=== PATIENT | male | born 1940 | race African-American/Black ===

== ENCOUNTER 2018-11-27 12:48 | Emergency (ER) | payer OTHER, MEDICAID ==
[~2018-11-27] VITALS: Ht 175.3 cm; Wt 59.0 kg
[~2018-11-27 12:48] MED LIST: ALEN70TA68 PO; AMLO10TA80 GT; ATOR20TA65 GT; CLOP75TA33 PO; DOCU-150 GT
[2018-11-27 18:11] LABS: EOSINOPHILS % 1.6 % (0.0-5.0); HEMATOCRIT. 37.5 % (42.0-52.0); HEMOGLOBIN. 11.9 g/dL (14.0-18.0); LYMPHOCYTES % 30.3 % (20.0-50.0); MEAN CORPUSCULAR HEMOGLOBIN 23.4 pg (28.0-32.0); MEAN CORPUSCULAR VOLUME 73.5 fL (80.0-94.0); MEAN PLATELET VOLUME 8.1 fl (7.4-10.4); NEUTROPHILS % 58.1 % (40.0-76.0); PLATELET 252 x1000/uL (130-400); RED BLOOD CELL COUNT 5.11 mill/uL (4.7-6.1); RED CELL DISTRIBUTION WIDTH 15.1 % (11.6-14.6)
[2018-11-27 18:17] LABS: CHLORIDE 106 mEq/L (98-107)
[2018-11-27 20:10] VITALS: BP 106/60
[2018-11-28] MEDS ORDERED: ASPI-1393 MT (17:05)
[2018-11-28] MEDS ORDERED: ATOR40TA70 MT (17:05)
[2018-11-28] MEDS ORDERED: RANI150T7 MT (17:05)
[2018-11-28] MEDS ORDERED: MELA3TAB MT (17:05)
[2018-11-28] MEDS ORDERED: MULT-1044 PO (17:05)
[2018-11-28] MEDS ORDERED: NAPR-681 MT (17:05)
== END 2018-11-27 20:12 | disposition home or self-care (01) ==
LOC: ER 14:11
DX: K94.23 Gastrostomy malfunction (principal); I10 Essential (primary) hypertension; Z86.73 Personal history of transient ischemic attack (TIA), and cerebral infarction without residual deficits; Z79.899 Other long term (current) drug therapy
CPT/HCPCS: 36415; 71045; 93005; 99284

== ENCOUNTER 2018-11-28 13:03 | Inpatient (IN) | payer OTHER, MEDICAID ==
[~2018-11-28] VITALS: Ht 175.3 cm; Wt 57.2 kg
[2018-11-28 14:51] LABS: EOSINOPHILS % 1.2 % (0.0-5.0); HEMATOCRIT. 39.5 % (42.0-52.0); HEMOGLOBIN. 12.7 g/dL (14.0-18.0); LYMPHOCYTES % 32.4 % (20.0-50.0); MEAN CORPUSCULAR HEMOGLOBIN 23.6 pg (28.0-32.0); MEAN CORPUSCULAR VOLUME 73.1 fL (80.0-94.0); MEAN PLATELET VOLUME 7.8 fl (7.4-10.4); MONOCYTES % 9.2 % (2.0-8.0); NEUTROPHILS % 56.2 % (40.0-76.0); PLATELET 258 x1000/uL (130-400); RED CELL DISTRIBUTION WIDTH 15.2 % (11.6-14.6)
[2018-11-28 14:56] LABS: CHLORIDE 105 mEq/L (98-107)
[2018-11-28 14:57] LABS: INR 1.1
[2018-11-28 15:30] VITALS: BP 121/67
[2018-11-28 16:00] VITALS: BP 121/67
[2018-11-28] MEDS ORDERED: ASPI-1393 MT (17:05)
[2018-11-28] MEDS ORDERED: ATOR40TA70 MT (17:05)
[2018-11-28] MEDS ORDERED: NAPR-681 MT (17:05)
[2018-11-28] MEDS ORDERED: RANI150T7 MT (17:05)
[2018-11-28] MEDS ORDERED: MELA3TAB MT (17:05)
[2018-11-28] MEDS ORDERED: MULT-1044 PO (17:05)
[2018-11-28] MEDS ORDERED: HYDROCODONE/ACETAMINOPHEN 5/325MG TABLET PO PRN (18:45)
[2018-11-28] MEDS ORDERED: DIPHENHYDRAMINE 50MG/ML VIAL IV PRN (18:45)
[2018-11-28] MEDS ORDERED: MAGNESIUM/ALUMINUM HYDROXIDE/SIMETHICONE 30ML UDC PO PRN (18:45)
[2018-11-28] MEDS ORDERED: DOCUSATE SODIUM 100MG CAPSULE PO PRN (18:45)
[2018-11-28] MEDS ORDERED: NA PHOS,M-B/NA PHOS,DI-BA ENEMA 118ML PR PRN (18:45)
[2018-11-28] MEDS ORDERED: GUAIFENESIN 200MG/10ML SUGAR FREE UDC PO PRN (18:45)
[2018-11-28] MEDS ORDERED: ACETAMINOPHEN 650MG SUPP PR PRN (18:45)
[2018-11-28] MEDS ORDERED: CLONIDINE 0.1MG TABLET PO PRN (18:45)
[2018-11-28] MEDS ORDERED: ACETAMINOPHEN 325MG TABLET PO PRN (18:45)
[2018-11-28] MEDS ORDERED: LORAZEPAM 0.5MG TABLET PO PRN (18:45)
[2018-11-28] MEDS ORDERED: IPRATROPIUM/ALBUTEROL 0.5-3(2.5)MG/3ML NEB NEB PRN (18:45)
[2018-11-28] MEDS ORDERED: ONDANSETRON HCL 4MG/2ML INJ IV PRN (18:45)
[2018-11-28 20:00] VITALS: BP 119/56
[2018-11-28] MEDS ORDERED: FAMOTIDINE 20MG TABLET PO SCH (21:00)
[2018-11-29] VITALS: BP 109/49
[2018-11-29 04:00] VITALS: BP 95/49
[2018-11-29 07:19] LABS: BASOPHILS % 0.7 % (0.0-2.0); EOSINOPHILS % 1.6 % (0.0-5.0); HEMATOCRIT. 34.5 % (42.0-52.0); HEMOGLOBIN. 11.2 g/dL (14.0-18.0); LYMPHOCYTES % 31.7 % (20.0-50.0); MEAN CORPUSCULAR HEMOGLOBIN 23.7 pg (28.0-32.0); MEAN CORPUSCULAR VOLUME 72.9 fL (80.0-94.0); MEAN PLATELET VOLUME 8.5 fl (7.4-10.4); PLATELET 256 x1000/uL (130-400); RED BLOOD CELL COUNT 4.73 mill/uL (4.7-6.1); RED CELL DISTRIBUTION WIDTH 15.1 % (11.6-14.6)
[2018-11-29 07:30] LABS: CHLORIDE 107 mEq/L (98-107)
[2018-11-29 07:50] LABS: HDL CHOLESTEROL 44 mg/dL (40-59)
[2018-11-29 07:53] LABS: LDL CHOLESTEROL 56 mg/dL (5-100)
[2018-11-29 08:00] VITALS: BP 93/53
[2018-11-29] MEDS ORDERED: ENOXAPARIN 40MG/0.4ML SYR SUBCUT SCH (09:00)
[2018-11-29] MEDS ORDERED: BISACODYL 10MG SUPP PR NR (11:00)
[2018-11-29 12:00] VITALS: BP 95/46
[2018-11-29] MEDS: METOCLOPRAMIDE HCL 10MG/2ML VIAL IV SCH ×2 (12:53→17:33)
[2018-11-29 16:00] VITALS: BP 104/45
== END 2018-11-29 20:05 | disposition home or self-care (01) | DRG 394 ==
LOC: ER 13:27 → 6WST 14:36 → ENRESERV 14:52
PROVIDERS: ADMIT Internal Medicine; ATTEND Internal Medicine
DX: K94.23 Gastrostomy malfunction (principal); G81.91 Hemiplegia, unspecified affecting right dominant side; K56.7 Ileus, unspecified; R47.02 Dysphasia; E78.00 Pure hypercholesterolemia, unspecified; D64.9 Anemia, unspecified; I10 Essential (primary) hypertension; K56.41 Fecal impaction; Z86.73 Personal history of transient ischemic attack (TIA), and cerebral infarction without residual deficits
CPT/HCPCS: 36415; 74018; 80061; 84439; 84443; 99285; J1650; J2765

== ENCOUNTER 2019-04-30 22:36 | Inpatient (IN) | payer OTHER, MEDICAID ==
[~2019-04-30] VITALS: Ht 167.6 cm; Wt 67.1 kg
[~2019-04-30 22:36] MED LIST changes: -AMLO10TA80 GT; +AMLO10TA80 PO; +ASPI-1497 MT; -ATOR20TA65 GT; +ATOR40TA70 PO; -CLOP75TA33 PO; -DOCU-150 GT; +MELA3TAB63 MT; +MULT-1044 PO; +NAPR-681 MT; +RANI150T7 MT
[2019-04-30] MEDS ORDERED: PIPERACILLIN/TAZ 3.375G PREMIX 50 ML IV ONE (23:00)
[2019-04-30] MEDS ORDERED: LORAZEPAM 2MG/ML CPJ IV ONE (23:00)
[2019-04-30] MEDS ORDERED: SODIUM CHLORIDE 0.9% 1000ML BAG (SEPSIS BOLUS) IV ONE (23:00)
[2019-04-30] MEDS ORDERED: VANCOMYCIN 1 G PREMIX 200 ML IV ONE (23:00)
[2019-05-01 00:52] LABS: HEMATOCRIT. 33.7 % (42.0-52.0); HEMOGLOBIN. 10.6 g/dL (14.0-18.0); MEAN CORPUSCULAR HEMOGLOBIN 23.2 pg (28.0-32.0); MEAN CORPUSCULAR VOLUME 73.9 fL (80.0-94.0); MEAN PLATELET VOLUME 7.5 fl (7.4-10.4); PLATELET 440 x1000/uL (130-400); RED BLOOD CELL COUNT 4.56 mill/uL (4.7-6.1); RED CELL DISTRIBUTION WIDTH 14.5 % (11.6-14.6)
[2019-05-01 00:56] LABS: CHLORIDE 109 mEq/L (98-107)
[2019-05-01] MEDS ORDERED: HALOPERIDOL LACTATE 5MG/ML VIAL IM ONE ×3 (01:15→03:30)
[2019-05-01 01:51] LABS: CLARITY URINE CLEAR (CLEAR); COLOR URINE YELLOW (YELLOW); KETONES URINE NEGATIVE (NEGATIVE); LEUKOCYTE ESTERASE URINE NEGATIVE (NEGATIVE); NITRITE URINE NEGATIVE (NEGATIVE); OCCULT BLOOD URINE NEGATIVE (NEGATIVE); PH URINE 8.5 (4.5-8.0); PROTEIN URINE TRACE (NEGATIVE); SPECIFIC GRAVITY URINE 1.025 (1.005-1.030)
[2019-05-01] MEDS ORDERED: SODIUM CHLORIDE 0.9% 1,000 ML IV ONE ×2 (02:49→06:04)
[2019-05-01] MEDS ORDERED: LORAZEPAM 2MG/ML CPJ IV ONE (05:00)
[2019-05-01 09:06] LABS: PLATELET ESTIMATE INCREASED
[2019-05-01] MEDS ORDERED: ONDANSETRON HCL 4MG/2ML INJ IV PRN (11:15)
[2019-05-01] MEDS ORDERED: PIPERACILLIN/TAZ 3.375G PREMIX 50 ML IV SCH (11:34)
[2019-05-01] MEDS ORDERED: VANCOMYCIN 1 G PREMIX 200 ML IV SCH (11:42)
[2019-05-01] MEDS ORDERED: LORAZEPAM 2MG/ML CPJ IV NR (14:30)
[2019-05-01 14:52] VITALS: BP 99/60
[2019-05-01 15:14] VITALS: BP 99/60
[2019-05-01] MEDS: ENOXAPARIN 40MG/0.4ML SYR SUBCUT SCH (15:48)
[2019-05-01] MEDS: IPRATROPIUM/ALBUTEROL 0.5-3(2.5)MG/3ML NEB HHN SCH ×2 (15:59→20:48)
[2019-05-01 16:00] VITALS: BP 94/55
[2019-05-01] MEDS: PIPERACILLIN/TAZOBACTAM 3.375 G in DEXT 5% WATER 100 ML IV SCH (17:16)
[2019-05-01] MEDS: MIDODRINE HCL 5MG TABLET PO SCH (17:16)
[2019-05-01 17:55] VITALS: BP 94/56
[2019-05-01 20:00] VITALS: BP 121/63
[2019-05-01 21:43] LABS: HEMATOCRIT. 32.9 % (42.0-52.0); HEMOGLOBIN. 10.6 g/dL (14.0-18.0); MEAN CORPUSCULAR HEMOGLOBIN 23.6 pg (28.0-32.0); MEAN CORPUSCULAR VOLUME 73.4 fL (80.0-94.0); MEAN PLATELET VOLUME 7.7 fl (7.4-10.4); PLATELET 408 x1000/uL (130-400); RED BLOOD CELL COUNT 4.49 mill/uL (4.7-6.1); RED CELL DISTRIBUTION WIDTH 14.9 % (11.6-14.6)
[2019-05-01] MEDS: ACETAMINOPHEN 325MG TABLET PO PRN (21:45)
[2019-05-01] MEDS: ATORVASTATIN CALCIUM 40MG TABLET PO SCH (21:45)
[2019-05-01 22:00] VITALS: BP 116/53
[2019-05-01 23:23] LABS: PLATELET ESTIMATE SLIGHTLY INCREASED
[2019-05-02] VITALS (12 sets, daily range): BP systolic 89–121; BP diastolic 48–67
[2019-05-02] MEDS: PIPERACILLIN/TAZOBACTAM 3.375 G in DEXT 5% WATER 100 ML IV SCH ×5 (00:45→23:56)
[2019-05-02] MEDS: ACETYLCYSTEINE 100MG/ML 10% VIAL 4ML INH SCH ×3 (01:06→16:55)
[2019-05-02] MEDS: IPRATROPIUM/ALBUTEROL 0.5-3(2.5)MG/3ML NEB HHN SCH ×6 (01:10→20:59)
[2019-05-02] MEDS: VANCOMYCIN 750 MG PREMIX 150 ML IV SCH ×2 (02:28→14:11)
[2019-05-02 07:20] LABS: CHLORIDE 111 mEq/L (98-107)
[2019-05-02 07:21] LABS: HEMATOCRIT. 30.1 % (42.0-52.0); HEMOGLOBIN. 9.7 g/dL (14.0-18.0); MEAN CORPUSCULAR HEMOGLOBIN 23.2 pg (28.0-32.0); MEAN CORPUSCULAR VOLUME 71.9 fL (80.0-94.0); MEAN PLATELET VOLUME 7.8 fl (7.4-10.4); PLATELET 418 x1000/uL (130-400); RED BLOOD CELL COUNT 4.18 mill/uL (4.7-6.1); RED CELL DISTRIBUTION WIDTH 14.5 % (11.6-14.6)
[2019-05-02 08:29] LABS: BG CARBOXYHEMOGLOBIN 0.3 % (0.5-1.5); BG DEOXYHEMOGLOBIN 13.1 % (0.0-5.0); BG HCO3 ACT 23.9 mmol/L (22.0-26.0); BG METHEMOGLOBIN 0.3 % (0.0-1.5); BG OXYGEN SATURATION 86.8 % (92.0-98.5); BG OXYHEMOGLOBIN 86.3 % (94.0-97.0); BG PCO2 32.2 mmHg (35.0-45.0); BG PH 7.489 (7.350-7.450); BG PO2 46.4 mmHg (75.0-100.0); BG SAMPLE SITE LEFT RADIAL; BG TOTAL HEMOGLOBIN 10.3 g/dL (12.0-18.0); BG VENT MODE ROOM AIR
[2019-05-02] MEDS: MIDODRINE HCL 5MG TABLET PO SCH ×3 (09:10→16:32)
[2019-05-02] MEDS ORDERED: DIPHENHYDRAMINE 50MG/ML VIAL IV SCH (10:30)
[2019-05-02] MEDS: ENOXAPARIN 40MG/0.4ML SYR SUBCUT SCH (14:12)
[2019-05-02] MEDS: ACETAMINOPHEN 325MG TABLET PO PRN ×2 (16:32→23:56)
[2019-05-02 18:42] LABS: PLATELET ESTIMATE INCREASED
[2019-05-02] MEDS: ATORVASTATIN CALCIUM 40MG TABLET PO SCH (20:28)
[2019-05-03] VITALS (16 sets, daily range): BP systolic 97–139; BP diastolic 52–104
[2019-05-03] MEDS: IPRATROPIUM/ALBUTEROL 0.5-3(2.5)MG/3ML NEB HHN SCH ×6 (00:45→22:06)
[2019-05-03] MEDS: ACETYLCYSTEINE 100MG/ML 10% VIAL 4ML INH SCH ×3 (00:45→16:12)
[2019-05-03] MEDS: VANCOMYCIN 750 MG PREMIX 150 ML IV SCH (02:46)
[2019-05-03] MEDS: PIPERACILLIN/TAZOBACTAM 3.375 G in DEXT 5% WATER 100 ML IV SCH ×4 (05:33→23:59)
[2019-05-03 06:09] LABS: BASOPHILS % 0.4 % (0.0-2.0); EOSINOPHILS % 1.1 % (0.0-5.0); HEMATOCRIT. 29.3 % (42.0-52.0); HEMOGLOBIN. 9.5 g/dL (14.0-18.0); LYMPHOCYTES % 8.7 % (20.0-50.0); MEAN CORPUSCULAR HEMOGLOBIN 23.3 pg (28.0-32.0); MEAN CORPUSCULAR VOLUME 71.7 fL (80.0-94.0); MEAN PLATELET VOLUME 7.8 fl (7.4-10.4); MONOCYTES % 7.2 % (2.0-8.0); NEUTROPHILS % 82.6 % (40.0-76.0); PLATELET 379 x1000/uL (130-400); RED BLOOD CELL COUNT 4.08 mill/uL (4.7-6.1); RED CELL DISTRIBUTION WIDTH 14.3 % (11.6-14.6)
[2019-05-03 07:35] LABS: CHLORIDE 108 mEq/L (98-107)
[2019-05-03 08:40] LABS: PARTIAL THROMBOPLASTIN TIME 37.4 sec (23.4-31.0)
[2019-05-03] MEDS: MIDODRINE HCL 5MG TABLET PO SCH ×3 (09:20→18:27)
[2019-05-03] MEDS ORDERED: DIATR MEGLU/DIATRIZOATE SOLN 30ML ONE (14:01)
[2019-05-03] MEDS: VANCOMYCIN 1 G PREMIX 200 ML IV SCH (16:45)
[2019-05-03] MEDS ORDERED: POTASSIUM CHLORIDE 20MEQ/PACKET PO NR (20:00)
[2019-05-03] MEDS: ACETAMINOPHEN 325MG TABLET PO PRN (20:54)
[2019-05-03] MEDS: ATORVASTATIN CALCIUM 40MG TABLET PO SCH (20:54)
[2019-05-04] VITALS (12 sets, daily range): BP systolic 102–133; BP diastolic 45–65
[2019-05-04] MEDS: ACETYLCYSTEINE 100MG/ML 10% VIAL 4ML INH SCH ×3 (01:07→15:55)
[2019-05-04] MEDS: IPRATROPIUM/ALBUTEROL 0.5-3(2.5)MG/3ML NEB HHN SCH ×6 (01:07→21:59)
[2019-05-04] MEDS: VANCOMYCIN 1 G PREMIX 200 ML IV SCH ×2 (04:25→15:48)
[2019-05-04] MEDS: PIPERACILLIN/TAZOBACTAM 3.375 G in DEXT 5% WATER 100 ML IV SCH ×3 (05:54→16:37)
[2019-05-04 06:54] LABS: BASOPHILS % 0.3 % (0.0-2.0); EOSINOPHILS % 1.9 % (0.0-5.0); HEMATOCRIT. 29.3 % (42.0-52.0); HEMOGLOBIN. 9.7 g/dL (14.0-18.0); MEAN CORPUSCULAR HEMOGLOBIN 23.6 pg (28.0-32.0); MEAN CORPUSCULAR VOLUME 70.9 fL (80.0-94.0); MEAN PLATELET VOLUME 7.8 fl (7.4-10.4); MONOCYTES % 9.3 % (2.0-8.0); NEUTROPHILS % 79.5 % (40.0-76.0); PLATELET 380 x1000/uL (130-400); RED BLOOD CELL COUNT 4.13 mill/uL (4.7-6.1); RED CELL DISTRIBUTION WIDTH 14.6 % (11.6-14.6)
[2019-05-04 07:01] LABS: CHLORIDE 106 mEq/L (98-107)
[2019-05-04] MEDS: MIDODRINE HCL 5MG TABLET PO SCH ×3 (09:21→16:37)
[2019-05-04] MEDS ORDERED: GUAIFENESIN 200MG/10ML SUGAR FREE UDC PO PRN (14:30)
[2019-05-04] MEDS ORDERED: LORAZEPAM 2MG/ML CPJ IV PRN (14:30)
[2019-05-04] MEDS: MORPHINE SULFATE 2 MG/ML CPJ (NOT FOR IM USE) IV PRN (17:16)
[2019-05-04] MEDS ORDERED: VANCOMYCIN 1 G PREMIX 200 ML IV SCH (20:00)
[2019-05-04] MEDS ORDERED: LACTULOSE 20G/30ML UDC PO PRN (21:00)
[2019-05-04] MEDS: ATORVASTATIN CALCIUM 40MG TABLET PO SCH (21:12)
[2019-05-05] VITALS (13 sets, daily range): BP systolic 96–135; BP diastolic 52–82
[2019-05-05] MEDS: ACETYLCYSTEINE 100MG/ML 10% VIAL 4ML INH SCH ×2 (00:49→07:43)
[2019-05-05] MEDS: IPRATROPIUM/ALBUTEROL 0.5-3(2.5)MG/3ML NEB HHN SCH ×5 (00:49→20:32)
[2019-05-05] MEDS: PIPERACILLIN/TAZOBACTAM 3.375 G in DEXT 5% WATER 100 ML IV SCH ×5 (00:55→23:30)
[2019-05-05 06:25] LABS: CHLORIDE 107 mEq/L (98-107)
[2019-05-05 06:31] LABS: VANCOMYCIN TROUGH 18.1 ug/mL (5.0-10.0)
[2019-05-05 06:58] LABS: HEMATOCRIT 28.9 % (42.0-52.0); HEMOGLOBIN 9.3 g/dL (14.0-18.0); MEAN CORPUSCULAR HEMOGLOBIN 23.2 pg (28.0-32.0); MEAN CORPUSCULAR VOLUME 72.3 fL (80.0-94.0); PLATELET 400 x1000/uL (130-400); RED CELL DISTRIBUTION WIDTH 14.5 % (11.6-14.6)
[2019-05-05] MEDS ORDERED: VANCOMYCIN 1 G PREMIX 200 ML IV SCH (08:00)
[2019-05-05] MEDS: MIDODRINE HCL 5MG TABLET PO SCH (09:00)
[2019-05-05] MEDS ORDERED: SODIUM BICARBONATE 4% (2.4MEQ) 5ML VIAL IV ONE (12:05)
[2019-05-05] MEDS ORDERED: LIDOCAINE HCL 1% 20ML VIAL (Pyxis) INJ ONE (12:05)
[2019-05-05] MEDS ORDERED: NEOSTIGMINE METHYLSULFATE 1MG/ML 10 ML VIAL ONE (12:35)
[2019-05-05] MEDS ORDERED: LIDOCAINE HCL/PF 1% 10 MG/ML 5ML VIAL ONE (12:35)
[2019-05-05] MEDS ORDERED: PROPOFOL 200MG/20ML VIAL IV ONE (12:35)
[2019-05-05] MEDS ORDERED: CEFAZOLIN SODIUM 1000MG/VIAL ONE (12:35)
[2019-05-05] MEDS ORDERED: ROCURONIUM BROMIDE 10MG/ML VIAL 5ML IV ONE (12:35)
[2019-05-05] MEDS ORDERED: SODIUM CHLORIDE 0.9% 10ML VIAL ONE (12:35)
[2019-05-05] MEDS ORDERED: FENTANYL CITRATE/PF 50MCG/ML 2ML VIAL ONE (12:35)
[2019-05-05] MEDS ORDERED: MIDAZOLAM HCL 2 MG/2 ML VIAL ONE ×2 (12:35→12:38)
[2019-05-05] MEDS ORDERED: GLYCOPYRROLATE 0.2 MG/ML 2ML VIAL ONE (12:35)
[2019-05-05] MEDS ORDERED: METOCLOPRAMIDE HCL 10MG/2ML VIAL ONE (12:36)
[2019-05-05] MEDS ORDERED: SUCCINYLCHOLINE CHLORIDE 200MG/10ML IV ONE (12:36)
[2019-05-05] MEDS ORDERED: ONDANSETRON HCL 4MG/2ML INJ ONE (12:36)
[2019-05-05] MEDS ORDERED: ONDANSETRON HCL 4MG/2ML INJ IV PRN (13:30)
[2019-05-05] MEDS ORDERED: SODIUM CHLORIDE 0.9% 1,000 ML IV ONE (13:30)
[2019-05-05 17:31] LABS: BG BASE EXCESS 2.8 mmol/L (-2.0-2.0); BG CARBOXYHEMOGLOBIN 0.3 % (0.5-1.5); BG DEOXYHEMOGLOBIN 10.1 % (0.0-5.0); BG FRACTION INSPIRED OXYGEN 21; BG HCO3 ACT 26.3 mmol/L (22.0-26.0); BG METHEMOGLOBIN 0.2 % (0.0-1.5); BG OXYGEN SATURATION 89.8 % (92.0-98.5); BG OXYHEMOGLOBIN 89.4 % (94.0-97.0); BG PH 7.481 (7.350-7.450); BG PO2 53.7 mmHg (75.0-100.0); BG SAMPLE SITE LEFT RADIAL; BG TOTAL HEMOGLOBIN 10.6 g/dL (12.0-18.0); BG VENT MODE ROOM AIR
[2019-05-05] MEDS: METHYLPREDNISOLONE SOD SUCC 40 MG/ML VIAL IV SCH (18:46)
[2019-05-05] MEDS: VANCOMYCIN 750 MG PREMIX 150 ML IV SCH (18:47)
[2019-05-05] MEDS: ATORVASTATIN CALCIUM 40MG TABLET PO SCH (21:03)
[2019-05-05] MEDS: MORPHINE SULFATE 2 MG/ML CPJ (NOT FOR IM USE) IV PRN (21:09)
[2019-05-06] VITALS (14 sets, daily range): BP systolic 111–133; BP diastolic 63–82
[2019-05-06] MEDS: IPRATROPIUM/ALBUTEROL 0.5-3(2.5)MG/3ML NEB HHN SCH ×6 (01:47→20:01)
[2019-05-06] MEDS: ACETYLCYSTEINE 100MG/ML 10% VIAL 4ML INH SCH ×2 (01:48→08:37)
[2019-05-06] MEDS: METHYLPREDNISOLONE SOD SUCC 40 MG/ML VIAL IV SCH ×2 (05:51→18:32)
[2019-05-06] MEDS: VANCOMYCIN 750 MG PREMIX 150 ML IV SCH ×2 (05:51→18:32)
[2019-05-06] MEDS: PIPERACILLIN/TAZOBACTAM 3.375 G in DEXT 5% WATER 100 ML IV SCH ×3 (05:51→18:32)
[2019-05-06 06:08] LABS: HEMATOCRIT. 31.4 % (42.0-52.0); HEMOGLOBIN. 10.1 g/dL (14.0-18.0); MEAN CORPUSCULAR HEMOGLOBIN 22.8 pg (28.0-32.0); MEAN CORPUSCULAR VOLUME 71.2 fL (80.0-94.0); MEAN PLATELET VOLUME 8.2 fl (7.4-10.4); PLATELET 386 x1000/uL (130-400); RED CELL DISTRIBUTION WIDTH 14.4 % (11.6-14.6)
[2019-05-06 06:35] LABS: CHLORIDE 107 mEq/L (98-107)
[2019-05-06 12:48] LABS: PLATELET ESTIMATE NORMAL
[2019-05-06] MEDS ORDERED: P20 PO (14:14)
[2019-05-06] MEDS ORDERED: LEVO500T2 PO (14:14)
[2019-05-06] MEDS ORDERED: IPRA3AMP9 NEB (14:14)
== END 2019-05-06 21:25 | disposition hospice, home (50) | DRG 871 ==
LOC: ER 22:36 → EDBEDREQ 05-01 06:08 → EDBEDREQTM 05-01 06:08 → EDBEDREQ 05-01 06:26 → EDBEDREQSVC 05-01 06:30 → ENRESERV 05-01 13:54 → 5EST 05-01 14:27
PROVIDERS: ADMIT Internal Medicine; ATTEND Internal Medicine
PROC: 0W9930Z Drainage of Right Pleural Cavity with Drainage Device, Percutaneous Approach (ICD-10-PCS; principal; 2019-05-05)
DX: A41.9 Sepsis, unspecified organism (principal); G93.41 Metabolic encephalopathy; J96.00 Acute respiratory failure, unspecified whether with hypoxia or hypercapnia; E43 Unspecified severe protein-calorie malnutrition; J18.9 Pneumonia, unspecified organism; R65.21 Severe sepsis with septic shock; J86.9 Pyothorax without fistula; E87.2 Acidosis; J91.8 Pleural effusion in other conditions classified elsewhere; I69.351 Hemiplegia and hemiparesis following cerebral infarction affecting right dominant side; E87.8 Other disorders of electrolyte and fluid balance, not elsewhere classified; D64.9 Anemia, unspecified; E78.00 Pure hypercholesterolemia, unspecified; I10 Essential (primary) hypertension; G93.89 Other specified disorders of brain; E78.5 Hyperlipidemia, unspecified; E87.6 Hypokalemia; Z51.5 Encounter for palliative care; Z79.899 Other long term (current) drug therapy; Z79.82 Long term (current) use of aspirin; Z68.23 Body mass index [BMI] 23.0-23.9, adult; I69.320 Aphasia following cerebral infarction; Z74.01 Bed confinement status
CPT/HCPCS: 32555; 36415; 36600; 70551; 71045; 71250; 80048; 80053; 80202; 81003; 82040; 82270; 82375; 82805; 82962; 83036; 83605; 83615; 84145; 84478; 84484; 85025; 85027; 87102; 87116; 92610; 93005; 94640; 96365; 99291; C1729; J0330; J0690; J1200; J1630; J1650; J2060; J2250; J2270; J2405; J2543; J2704; J2710; J2765; J2920; J3010; J3370; J3490; J7030; J7060; J7608; Q9963

== ENCOUNTER 2023-10-30 15:03 | Inpatient (IN) | payer OTHER, MEDICAID, MEDICARE ==
[~2023-10-30] VITALS: Ht 175.3 cm; Wt 71.8 kg
[~2023-10-30 15:03] MED LIST changes: -ALEN70TA68 PO; -ASPI-1497 MT; +IPRA3AMP9 NEB; +LEVO500T2 PO; +MELA3TAB40 MT; -MELA3TAB63 MT; -MULT-1044 PO; -NAPR-681 MT; +P20 PO; -RANI150T7 MT
[2023-10-30] MEDS: PIPERACILLIN/TAZO 3.375G/50ML 50 ML IV ONE (15:46)
[2023-10-30] MEDS: SODIUM CHLORIDE 0.9% 1000ML BAG (SEPSIS BOLUS) IV ONE (15:47)
[2023-10-30 16:28] LABS: BASOPHILS % 0.3 % (0.0-2.0); DIFFERENTIAL COMMENT 0; EOSINOPHILS % 0.1 % (0.0-5.0); HEMATOCRIT. 47.4 % (42.0-52.0); HEMOGLOBIN. 14.9 g/dL (14.0-18.0); LYMPHOCYTES % 10.4 % (20.0-50.0); MEAN CORPUSCULAR HGB CONC 31.6 g/dL (31.0-37.0); MEAN PLATELET VOLUME 8.8 fl (7.4-10.4); MONOCYTES % 7.4 % (2.0-8.0); NEUTROPHILS % 81.8 % (40.0-76.0); PLATELET 200 x1000/uL (130-400); RED BLOOD CELL COUNT 6.23 mill/uL (4.7-6.1); WHITE BLOOD COUNT 5.3 x1000/uL (4.5-11.0)
[2023-10-30 16:34] LABS: CARBON DIOXIDE 22 mEq/L (21-32); CHLORIDE 104 mEq/L (98-107); SODIUM 138 mEq/L (136-145)
[2023-10-30 16:35] LABS: CALCIUM 9.3 mg/dL (8.7-10.4)
[2023-10-30 16:36] LABS: INR 1.1; PROTHROMBIN TIME 11.9 sec (9.6-11.0)
[2023-10-30 16:40] LABS: CREATININE 3.3 mg/dL (0.6-1.3); GLUCOSE 148 mg/dL (70-105); TROPONIN I HIGH SENSITIVITY 27 ng/L (3.0-53); UREA NITROGEN BLOOD 26 mg/dL (9-23)
[2023-10-30 16:41] LABS: ALANINE AMINOTRANSFERASE 13 IU/L (10-49)
[2023-10-30 16:42] LABS: ALBUMIN 3.6 g/dL (3.2-4.8); ASPARTATE AMINOTRANSFERASE 30 IU/L (<34); BILIRUBIN DIRECT 0.3 mg/dL (<=3.0); BILIRUBIN TOTAL 0.9 mg/dL (0.1-1.0); PROTEIN TOTAL 6.5 g/dL (6.0-8.3)
[2023-10-30 16:47] LABS: LACTIC ACID 6.1 mmol/L (0.4-2.0)
[2023-10-30] MEDS: VANCOMYCIN 1G PREMIX 200 ML IV ONE (17:08)
[2023-10-30 19:35] LABS: CLARITY URINE TURBID (CLEAR); COLOR URINE DARK YELLOW (YELLOW); GLUCOSE URINE NEGATIVE (NEGATIVE); KETONES URINE NEGATIVE (NEGATIVE); LEUKOCYTE ESTERASE URINE 3+ (NEGATIVE); NITRITE URINE NEGATIVE (NEGATIVE); OCCULT BLOOD URINE 3+ (NEGATIVE); PROTEIN URINE 2+ (NEGATIVE); SPECIFIC GRAVITY URINE 1.011 (1.005-1.030); UROBILINOGEN URINE 0.2 E.U./dL (0.2-1.0)
[2023-10-30 20:19] LABS: TROPONIN I HIGH SENSITIVITY 31 ng/L (3.0-53)
[2023-10-30 20:32] LABS: WBC URINE TNTC /hpf (0-2)
[2023-10-30 20:33] LABS: RBC URINE 25-50 /hpf (0-2)
[2023-10-30 20:34] LABS: BACTERIA URINE 4+; SQUAMOUS EPITHELIAL CELL URINE RARE /lpf (RARE/1+)
[2023-10-31] VITALS (13 sets, daily range): BP systolic 104–121; BP diastolic 56–81; PULSE 115–129; RESP 0–31; TEMP 36.50292–38.22528; O2SAT 93–100
[2023-10-31] MEDS ORDERED: CEFEPIME 1GM IN DEXT 5% 50ML IV SCH (01:15)
[2023-10-31 01:47] LABS: BG BASE EXCESS -3.9 mmol/L (-2.0-2.0); BG CARBOXYHEMOGLOBIN 0.1 % (0.5-1.5); BG DEOXYHEMOGLOBIN 0.4 % (0.0-5.0); BG FRACTION INSPIRED OXYGEN 100; BG METHEMOGLOBIN 0.1 % (0.0-1.5); BG OXYGEN SATURATION 99.6 % (92.0-98.5); BG OXYHEMOGLOBIN 99.4 % (94.0-97.0); BG PCO2 29.3 mmHg (35.0-45.0); BG PH 7.429 (7.350-7.450); BG PO2 178.8 mmHg (75.0-100.0); BG SAMPLE SITE LEFT RADIAL; BG TOTAL HEMOGLOBIN 15.1 g/dL (12.0-18.0); BG VENT MODE MASK - NRB
[2023-10-31] MEDS: METHYLPREDNISOLONE SOD SUCC 40MG/ML (ACT-O-VIAL) IV SCH (01:47)
[2023-10-31] MEDS: DEXT 5%/0.45% NACL 1000ML 1,000 ML IV SCH (02:04)
[2023-10-31] MEDS ORDERED: FURO20TA4 PO (02:29)
[2023-10-31] MEDS ORDERED: BACL-141 PO (02:29)
[2023-10-31] MEDS ORDERED: AMLO5TAB88 PO (02:29)
[2023-10-31] MEDS ORDERED: ALPR-340 PO (02:31)
[2023-10-31] MEDS ORDERED: PRED10TA PO (02:31)
[2023-10-31] MEDS: CEFEPIME 1GM/50ML 50 ML IV SCH (05:04)
[2023-10-31] MEDS: DOXYCYCLINE 100MG/100ML 100 ML IV SCH (05:36)
[2023-10-31] MEDS ORDERED: ACETAMINOPHEN 650MG SUPP PR PRN (07:15)
[2023-10-31] MEDS ORDERED: LIDOCAINE HCL 1% 10 MG/ML 10ML VIAL ONE (07:58)
[2023-10-31] MEDS ORDERED: ACETAMINOPHEN 650MG SUPP PR SCH (08:00)
[2023-10-31] MEDS: IPRATROPIUM/ALBUTEROL 0.5-3(2.5)MG/3ML NEB HHN SCH (09:07)
[2023-10-31] MEDS: PANTOPRAZOLE SODIUM 40 MG/VIAL IV SCH (09:16)
[2023-10-31] MEDS: ENOXAPARIN 30MG/0.3ML SYR SUBCUT SCH (09:16)
[2023-10-31] MEDS: MEROPENEM 500MG/50ML 50 ML IV SCH (09:32)
[2023-10-31 13:34] LABS: POTASSIUM 4.4 mEq/L (3.5-5.1)
[2023-10-31 13:36] LABS: CALCIUM 8.1 mg/dL (8.7-10.4)
[2023-10-31 13:40] LABS: CREATININE 2.5 mg/dL (0.6-1.3)
[2023-10-31 15:08] LABS: BG BASE EXCESS -2.4 mmol/L (-2.0-2.0); BG CARBOXYHEMOGLOBIN 0.4 % (0.5-1.5); BG DEOXYHEMOGLOBIN 4.1 % (0.0-5.0); BG FRACTION INSPIRED OXYGEN 32; BG OXYGEN SATURATION 95.9 % (92.0-98.5); BG OXYHEMOGLOBIN 95.5 % (94.0-97.0); BG PCO2 32.4 mmHg (35.0-45.0); BG SAMPLE SITE LEFT RADIAL; BG TOTAL HEMOGLOBIN 13.7 g/dL (12.0-18.0)
[2023-10-31 15:23] LABS: HEMATOCRIT. 36.8 % (42.0-52.0); HEMOGLOBIN. 11.8 g/dL (14.0-18.0); MEAN CORPUSCULAR HGB CONC 32.1 g/dL (31.0-37.0); MEAN CORPUSCULAR VOLUME 74.9 fL (80.0-94.0); MEAN PLATELET VOLUME 9.9 fl (7.4-10.4); PLATELET 79 x1000/uL (130-400); RED BLOOD CELL COUNT 4.91 mill/uL (4.7-6.1); RED CELL DISTRIBUTION WIDTH 15.9 % (11.6-14.6); WHITE BLOOD COUNT 8.8 x1000/uL (4.5-11.0)
[2023-10-31 15:24] LABS: DIFFERENTIAL COMMENT 1
[2023-10-31 15:37] LABS: AMMONIA < 17 uMol/L (<32)
[2023-10-31 16:32] LABS: ANISOCYTOSIS 1+; PLATELET ESTIMATE DECREASED
[2023-10-31 16:33] LABS: HYPOCHROMASIA 1+; MICROCYTOSIS 2+
[2023-11-01] VITALS (18 sets, daily range): BP systolic 94–127; BP diastolic 58–80; PULSE 70–112; RESP 0–22; TEMP 36.28068–37.11408; O2SAT 78–98
[2023-11-01 06:10] LABS: HEMOGLOBIN. 12.6 g/dL (14.0-18.0); MEAN CORPUSCULAR HEMOGLOBIN 23.5 pg (28.0-32.0); MEAN CORPUSCULAR HGB CONC 31.6 g/dL (31.0-37.0); MEAN CORPUSCULAR VOLUME 74.5 fL (80.0-94.0); MEAN PLATELET VOLUME 9.6 fl (7.4-10.4); PLATELET 61 x1000/uL (130-400); RED BLOOD CELL COUNT 5.37 mill/uL (4.7-6.1); RED CELL DISTRIBUTION WIDTH 16.1 % (11.6-14.6); WHITE BLOOD COUNT 9.6 x1000/uL (4.5-11.0)
[2023-11-01 06:11] LABS: CHLORIDE 108 mEq/L (98-107); SODIUM 139 mEq/L (136-145)
[2023-11-01 06:12] LABS: CARBON DIOXIDE 23 mEq/L (21-32)
[2023-11-01 06:13] LABS: CALCIUM 8.7 mg/dL (8.7-10.4)
[2023-11-01 06:17] LABS: CREATININE 1.8 mg/dL (0.6-1.3); GLUCOSE 207 mg/dL (70-105)
[2023-11-01 06:18] LABS: UREA NITROGEN BLOOD 40 mg/dL (9-23)
[2023-11-01 06:19] LABS: ALANINE AMINOTRANSFERASE 16 IU/L (10-49); ALBUMIN 2.9 g/dL (3.2-4.8); ASPARTATE AMINOTRANSFERASE 23 IU/L (<34); BILIRUBIN DIRECT 0.3 mg/dL (<=3.0)
[2023-11-01 06:20] LABS: BILIRUBIN TOTAL 0.6 mg/dL (0.1-1.0); PHOSPHORUS 2.5 mg/dL (2.5-4.9); PROTEIN TOTAL 5.2 g/dL (6.0-8.3)
[2023-11-01 06:39] LABS: DIFFERENTIAL COMMENT 1
[2023-11-01 14:20] LABS: NUCLEATED RED BLOOD CELLS 1 /100 WBC
[2023-11-01 14:21] LABS: ANISOCYTOSIS 1+; MICROCYTOSIS 2+; PLATELET ESTIMATE DECREASED
[2023-11-01] MEDS: CEFTRIAXONE 2GM/50ML 50ML IV SCH (20:23)
[2023-11-01] MEDS ORDERED: MEROPENEM 1G/100ML IV SCH (21:00)
[2023-11-02] VITALS (18 sets, daily range): BP systolic 117–140; BP diastolic 61–82; PULSE 74–106; RESP 0–21; TEMP 36.16956–37.00296; O2SAT 96–100
[2023-11-02 08:06] LABS: HEMATOCRIT. 39.7 % (42.0-52.0); HEMOGLOBIN. 12.3 g/dL (14.0-18.0); MEAN CORPUSCULAR HEMOGLOBIN 23.3 pg (28.0-32.0); MEAN CORPUSCULAR HGB CONC 30.8 g/dL (31.0-37.0); MEAN CORPUSCULAR VOLUME 75.6 fL (80.0-94.0); MEAN PLATELET VOLUME 10.6 fl (7.4-10.4); PLATELET 53 x1000/uL (130-400); RED BLOOD CELL COUNT 5.26 mill/uL (4.7-6.1); RED CELL DISTRIBUTION WIDTH 16.1 % (11.6-14.6); WHITE BLOOD COUNT 12.1 x1000/uL (4.5-11.0)
[2023-11-02 08:12] LABS: CHLORIDE 110 mEq/L (98-107); SODIUM 140 mEq/L (136-145)
[2023-11-02 08:13] LABS: CALCIUM 8.5 mg/dL (8.7-10.4); CARBON DIOXIDE 21 mEq/L (21-32)
[2023-11-02 08:17] LABS: UREA NITROGEN BLOOD 27 mg/dL (9-23)
[2023-11-02 08:18] LABS: GLUCOSE 172 mg/dL (70-105)
[2023-11-02 08:20] LABS: ALANINE AMINOTRANSFERASE 27 IU/L (10-49); ALBUMIN 2.8 g/dL (3.2-4.8); ASPARTATE AMINOTRANSFERASE 35 IU/L (<34); BILIRUBIN DIRECT 0.1 mg/dL (<=3.0); BILIRUBIN TOTAL 0.4 mg/dL (0.1-1.0); DIFFERENTIAL COMMENT 1; PHOSPHORUS 1.7 mg/dL (2.5-4.9)
[2023-11-02 08:22] LABS: LACTIC ACID 2.8 mmol/L (0.4-2.0)
[2023-11-02 16:38] LABS: ANISOCYTOSIS 1+; HYPOCHROMASIA 1+; MICROCYTOSIS 1+; PLATELET ESTIMATE MARKEDLY DECREASED
[2023-11-03] VITALS (20 sets, daily range): BP systolic 117–136; BP diastolic 56–110; PULSE 78–100; RESP 0–24; TEMP 36.33624–37.39188; O2SAT 78–100
[2023-11-03 05:45] LABS: HEMATOCRIT. 39.1 % (42.0-52.0); MEAN CORPUSCULAR HEMOGLOBIN 23.4 pg (28.0-32.0); MEAN CORPUSCULAR HGB CONC 30.7 g/dL (31.0-37.0); MEAN CORPUSCULAR VOLUME 76.5 fL (80.0-94.0); MEAN PLATELET VOLUME 10.5 fl (7.4-10.4); PLATELET 54 x1000/uL (130-400); RED BLOOD CELL COUNT 5.12 mill/uL (4.7-6.1); RED CELL DISTRIBUTION WIDTH 16.4 % (11.6-14.6)
[2023-11-03 06:27] LABS: CARBON DIOXIDE 21 mEq/L (21-32); CHLORIDE 111 mEq/L (98-107); SODIUM 139 mEq/L (136-145)
[2023-11-03 06:28] LABS: CALCIUM 8.6 mg/dL (8.7-10.4)
[2023-11-03 06:31] LABS: CREATININE 0.7 mg/dL (0.6-1.3)
[2023-11-03 06:32] LABS: GLUCOSE 116 mg/dL (70-105)
[2023-11-03 06:33] LABS: UREA NITROGEN BLOOD 21 mg/dL (9-23)
[2023-11-03 06:35] LABS: PHOSPHORUS 1.6 mg/dL (2.5-4.9)
[2023-11-03 06:38] LABS: POTASSIUM 5.8 mEq/L (3.5-5.1)
[2023-11-03 06:54] LABS: DIFFERENTIAL COMMENT 1
[2023-11-03] MEDS: SODIUM PHOSPHATE 30 MMOL in DEXT 5% WATER 490 ML IV ONE (12:42)
[2023-11-03 14:22] LABS: ANISOCYTOSIS 1+; PLATELET ESTIMATE MARKEDLY DECREASED
[2023-11-04] VITALS (17 sets, daily range): BP systolic 112–128; BP diastolic 55–88; PULSE 71–100; RESP 10–23; TEMP 36.28068–37.00296; O2SAT 90–100
[2023-11-04 06:10] LABS: HEMATOCRIT. 35.3 % (42.0-52.0); MEAN CORPUSCULAR HEMOGLOBIN 23.1 pg (28.0-32.0); MEAN CORPUSCULAR HGB CONC 31.1 g/dL (31.0-37.0); MEAN CORPUSCULAR VOLUME 74.4 fL (80.0-94.0); MEAN PLATELET VOLUME 10.1 fl (7.4-10.4); PLATELET 75 x1000/uL (130-400); RED BLOOD CELL COUNT 4.75 mill/uL (4.7-6.1); RED CELL DISTRIBUTION WIDTH 15.6 % (11.6-14.6); WHITE BLOOD COUNT 12.1 x1000/uL (4.5-11.0)
[2023-11-04 06:25] LABS: CHLORIDE 112 mEq/L (98-107); SODIUM 143 mEq/L (136-145)
[2023-11-04 06:26] LABS: CARBON DIOXIDE 24 mEq/L (21-32)
[2023-11-04 06:28] LABS: DIFFERENTIAL COMMENT 1
[2023-11-04 06:29] LABS: UREA NITROGEN BLOOD 13 mg/dL (9-23)
[2023-11-04 06:32] LABS: CREATININE 0.7 mg/dL (0.6-1.3); GLUCOSE 100 mg/dL (70-105)
[2023-11-04 06:33] LABS: ALANINE AMINOTRANSFERASE 24 IU/L (10-49)
[2023-11-04 06:34] LABS: ALBUMIN 2.6 g/dL (3.2-4.8); ASPARTATE AMINOTRANSFERASE 21 IU/L (<34); BILIRUBIN DIRECT 0.1 mg/dL (<=3.0); BILIRUBIN TOTAL 0.4 mg/dL (0.1-1.0); PHOSPHORUS 2.5 mg/dL (2.5-4.9)
[2023-11-04 07:07] LABS: POTASSIUM 2.7 mEq/L (3.5-5.1)
[2023-11-04] MEDS ORDERED: POTASSIUM CHLORIDE 40 MEQ in DEXT 5% WATER 230 ML IV ONE (07:30)
[2023-11-04] MEDS ORDERED: KCL 20MEQ/100ML PREMIX 100 ML IV SCH (08:45)
[2023-11-04] MEDS: KCL 20MEQ/100ML X 2 FOR TOTAL KCL 40MEQ/200ML IV SCH (09:07)
[2023-11-04] MEDS: MAGNESIUM 2 G PREMIX 50 ML IV SCH (10:16)
[2023-11-04 16:30] LABS: HYPOCHROMASIA 1+; MICROCYTOSIS 2+; PLATELET ESTIMATE DECREASED
[2023-11-05] VITALS (13 sets, daily range): BP systolic 101–128; BP diastolic 63–90; PULSE 61–108; RESP 0–26; TEMP 36.50292–37.00296; O2SAT 89–100
[2023-11-05 06:25] LABS: CARBON DIOXIDE 25 mEq/L (21-32); CHLORIDE 112 mEq/L (98-107); POTASSIUM 3.3 mEq/L (3.5-5.1); SODIUM 144 mEq/L (136-145)
[2023-11-05 06:26] LABS: CALCIUM 8.3 mg/dL (8.7-10.4)
[2023-11-05 06:30] LABS: CREATININE 0.6 mg/dL (0.6-1.3)
[2023-11-05 06:31] LABS: GLUCOSE 94 mg/dL (70-105); UREA NITROGEN BLOOD 11 mg/dL (9-23)
[2023-11-05 06:49] LABS: HEMATOCRIT. 36.5 % (42.0-52.0); HEMOGLOBIN. 11.6 g/dL (14.0-18.0); MEAN CORPUSCULAR HEMOGLOBIN 23.6 pg (28.0-32.0); MEAN CORPUSCULAR HGB CONC 31.9 g/dL (31.0-37.0); MEAN PLATELET VOLUME 10.1 fl (7.4-10.4); PLATELET 97 x1000/uL (130-400); RED BLOOD CELL COUNT 4.93 mill/uL (4.7-6.1); RED CELL DISTRIBUTION WIDTH 15.3 % (11.6-14.6); WHITE BLOOD COUNT 11.9 x1000/uL (4.5-11.0)
[2023-11-05 08:35] LABS: DIFFERENTIAL COMMENT 1
[2023-11-05] MEDS: KCL 20MEQ/100ML PREMIX 100 ML IV NR (11:13)
[2023-11-05] MEDS: POTASSIUM PHOSPHATE 15 MMOL in DEXT 5% WATER 245 ML IV NR (11:13)
[2023-11-05 14:32] LABS: PLATELET ESTIMATE SLIGHTLY DECREASED
[2023-11-05 14:33] LABS: MICROCYTOSIS 1+
[2023-11-06] VITALS (12 sets, daily range): BP systolic 116–134; BP diastolic 59–107; PULSE 63–97; RESP 0–18; TEMP 36.55848–36.9474; O2SAT 83–100
[2023-11-06 06:33] LABS: HEMATOCRIT. 34.7 % (42.0-52.0); HEMOGLOBIN. 10.9 g/dL (14.0-18.0); MEAN CORPUSCULAR HEMOGLOBIN 23.1 pg (28.0-32.0); MEAN CORPUSCULAR HGB CONC 31.6 g/dL (31.0-37.0); MEAN CORPUSCULAR VOLUME 73.3 fL (80.0-94.0); MEAN PLATELET VOLUME 9.5 fl (7.4-10.4); PLATELET 146 x1000/uL (130-400); RED BLOOD CELL COUNT 4.73 mill/uL (4.7-6.1); RED CELL DISTRIBUTION WIDTH 15.4 % (11.6-14.6); WHITE BLOOD COUNT 11.3 x1000/uL (4.5-11.0)
[2023-11-06 06:38] LABS: DIFFERENTIAL COMMENT 1
[2023-11-06 06:47] LABS: CALCIUM 8.4 mg/dL (8.7-10.4); CARBON DIOXIDE 27 mEq/L (21-32); CHLORIDE 112 mEq/L (98-107); POTASSIUM 3.4 mEq/L (3.5-5.1); SODIUM 143 mEq/L (136-145)
[2023-11-06 06:52] LABS: CREATININE 0.6 mg/dL (0.6-1.3); GLUCOSE 127 mg/dL (70-105)
[2023-11-06 06:53] LABS: UREA NITROGEN BLOOD 10 mg/dL (9-23)
[2023-11-06 06:55] LABS: PHOSPHORUS 2.1 mg/dL (2.5-4.9)
[2023-11-06 17:20] LABS: HYPOCHROMASIA 1+; MICROCYTOSIS 2+; PLATELET ESTIMATE NORMAL
[2023-11-06] MEDS: MAGNESIUM 2 G PREMIX 50 ML IV NR (18:46)
[2023-11-06] MEDS: POTASSIUM PHOSPHATE 30 MMOL in SODIUM CHLORIDE 0.9% 490 ML IV NR (18:48)
[2023-11-07] VITALS (11 sets, daily range): BP systolic 119–132; BP diastolic 50–70; PULSE 63–86; RESP 0–14; TEMP 36.33624–37.7808; O2SAT 87–100
[2023-11-07 05:28] LABS: CHLORIDE 112 mEq/L (98-107); SODIUM 143 mEq/L (136-145)
[2023-11-07 05:29] LABS: CALCIUM 8.2 mg/dL (8.7-10.4); CARBON DIOXIDE 23 mEq/L (21-32)
[2023-11-07 05:34] LABS: CREATININE 0.5 mg/dL (0.6-1.3); GLUCOSE 94 mg/dL (70-105); UREA NITROGEN BLOOD 7 mg/dL (9-23)
[2023-11-07 05:36] LABS: PHOSPHORUS 3.5 mg/dL (2.5-4.9)
[2023-11-07] MEDS ORDERED: SIMETHICONE 40 MG/0.6 ML 15ML ONE (08:43)
[2023-11-07 11:10] LABS: BASOPHILS % 0.2 % (0.0-2.0); DIFFERENTIAL COMMENT 0; EOSINOPHILS % 0.4 % (0.0-5.0); HEMATOCRIT. 36.1 % (42.0-52.0); HEMOGLOBIN. 11.2 g/dL (14.0-18.0); LYMPHOCYTES % 8.6 % (20.0-50.0); MEAN CORPUSCULAR HEMOGLOBIN 23.2 pg (28.0-32.0); MEAN CORPUSCULAR HGB CONC 31.2 g/dL (31.0-37.0); MEAN PLATELET VOLUME 9.4 fl (7.4-10.4); MONOCYTES % 7.3 % (2.0-8.0); NEUTROPHILS % 83.5 % (40.0-76.0); PLATELET 169 x1000/uL (130-400); RED BLOOD CELL COUNT 4.84 mill/uL (4.7-6.1); RED CELL DISTRIBUTION WIDTH 15.5 % (11.6-14.6); WHITE BLOOD COUNT 16.8 x1000/uL (4.5-11.0)
[2023-11-07 11:16] LABS: MEAN CORPUSCULAR VOLUME 74.6 fL (80.0-94.0)
[2023-11-07] MEDS ORDERED: PROPOFOL 10MG/ML 100ML 100 ML IV ONE (11:18)
[2023-11-07] MEDS ORDERED: LIDOCAINE HCL 1% 20ML VIAL ONE (11:19)
[2023-11-08] VITALS (11 sets, daily range): BP systolic 110–125; BP diastolic 49–65; PULSE 55–89; RESP 0–20; TEMP 37.05852–37.55856; O2SAT 97–100
[2023-11-08] MEDS: METOCLOPRAMIDE HCL 10MG/2ML VIAL IV SCH (06:02)
== END 2023-11-08 18:47 | disposition hospice, home (50) | DRG 871 ==
LOC: ER 15:03 → 8WST 18:56 → EDBEDREQTM 19:08 → EDBEDREQ 19:08 → 5EST 10-31 17:14
PROVIDERS: ADMIT Internal Medicine; ATTEND Internal Medicine
PROC: 05HY33Z Insertion of Infusion Device into Upper Vein, Percutaneous Approach (ICD-10-PCS; 2023-10-31)
PROC: B54MZZA Ultrasonography of Right Upper Extremity Veins, Guidance (ICD-10-PCS; 2023-10-31)
PROC: 0DB78ZX Excision of Stomach, Pylorus, Via Natural or Artificial Opening Endoscopic, Diagnostic (ICD-10-PCS; principal; 2023-11-07)
PROC: 0DH63UZ Insertion of Feeding Device into Stomach, Percutaneous Approach (ICD-10-PCS; 2023-11-07)
DX: A41.59 Other Gram-negative sepsis (principal); G92.8 Other toxic encephalopathy; N17.0 Acute kidney failure with tubular necrosis; E44.0 Moderate protein-calorie malnutrition; E87.20 Acidosis, unspecified; N13.8 Other obstructive and reflux uropathy; R47.01 Aphasia; I69.351 Hemiplegia and hemiparesis following cerebral infarction affecting right dominant side; Z20.822 Contact with and (suspected) exposure to COVID-19; Z51.5 Encounter for palliative care; R62.7 Adult failure to thrive; E78.5 Hyperlipidemia, unspecified; I10 Essential (primary) hypertension; N30.90 Cystitis, unspecified without hematuria; K29.70 Gastritis, unspecified, without bleeding; K44.9 Diaphragmatic hernia without obstruction or gangrene; R65.20 Severe sepsis without septic shock; B96.1 Klebsiella pneumoniae [K. pneumoniae] as the cause of diseases classified elsewhere; R13.10 Dysphagia, unspecified; Z66 Do not resuscitate; Z68.23 Body mass index [BMI] 23.0-23.9, adult; Z74.01 Bed confinement status; Z93.1 Gastrostomy status; Z79.899 Other long term (current) drug therapy; Z82.49 Family history of ischemic heart disease and other diseases of the circulatory system
CPT/HCPCS: 36415; 36573; 36600; 71045; 71250; 74176; 76770; 80048; 80076; 81003; 82140; 82375; 82805; 83605; 83735; 84100; 84145; 84153; 84484; 85025; 86850; 86900; 87077; 87186; 87426; 88305; 88312; 88313; 92610; 93005; 94640; 99291; C1725; C1893; J0692; J0696; J1650; J2185; J2470; J2543; J2704; J2765; J2920; J3370; J3475; J3480; J3490; J7030; J7040; J7060